=== PATIENT | female | born 1945 | race Caucasian/White ===

== ENCOUNTER 2024-11-17 11:27 | Day surgery (SDC) | payer MEDICARE, OTHER ==
[2024-11-17] VITALS (13 sets, daily range): BP systolic 106–143; BP diastolic 44–84; PULSE 76–92; RESP 12–16; TEMP 97.7; O2SAT 94–100
[~2024-11-17] VITALS: Ht 165.1 cm; Wt 75.3 kg
[~2024-11-17 11:27] MED LIST: FOLI1TAB27 PO; LOP12.5T PO; METH2.5T PO; MULT-1085 PO; VIT1CAPS46 PO; WARF3TAB56 PO
[2024-11-17 12:13] LABS: BASOPHILS # (AUTO) 0.1 X10'3 (0-0.2); BASOPHILS % (AUTO) 1.1 % (0-1); EOSINOPHILS # (AUTO) 0.1 X10'3 (0-0.9); EOSINOPHILS % (AUTO) 1.7 % (0-6); HEMATOCRIT 38.7 % (35.0-45.0); HEMOGLOBIN 13.1 g/dl (12.0-16.0); LYMPHOCYTES # (AUTO) 2.8 X10'3 (1.1-4.8); LYMPHOCYTES % (AUTO) 32.7 % (21-51); MEAN CORPUSCULAR HEMOGLOBIN 31.3 PG (27.0-31.0); MEAN CORPUSCULAR HGB CONC 33.8 g/dL (33.0-36.5); MEAN CORPUSCULAR VOLUME 92.8 FL (78-98); MEAN PLATELET VOLUME 9.2 FL (7.4-10.4); MONOCYTES # (AUTO) 0.6 X10'3 (0-0.9); MONOCYTES % (AUTO) 6.6 % (2-12); NEUTROPHILS # (AUTO) 4.9 X10'3 (1.8-7.7); NEUTROPHILS % (AUTO) 57.9 % (42-75); PLATELET COUNT 215 X10'3 (140-440); RED BLOOD COUNT 4.17 X10'6 (4.20-5.60); RED CELL DISTRIBUTION WIDTH 14.1 % (11.5-14.5); WHITE BLOOD COUNT 8.4 X10'3 (4.5-11.0)
[2024-11-17 12:14] LABS: ALBUMIN 3.6 G/DL (3.4-5.0); ANION GAP 8 (8-16); BLOOD UREA NITROGEN 20 MG/DL (7-18); BUN/CREATININE RATIO 28.6 (10.0-20.0); CALCIUM 9.6 MG/DL (8.5-10.1); CHLORIDE 107 MMOL/L (99-107); GLUCOSE 90 MG/DL (70-104); POTASSIUM 4.1 MMOL/L (3.5-5.1); SODIUM 141 MMOL/L (135-145); TOTAL CARBON DIOXIDE 25.7 MMOL/L (24-32); eCRCL 60 ML/MIN; eGFR 81 ML/MIN
[2024-11-17 12:17] LABS: APTT 35 SECONDS (22-32); PROTHROMBIN TIME 19.4 SECONDS (9.0-12.0)
[2024-11-17] MEDS: MIDAZolam 1mg/ml 10ml vial IV ONE (13:25)
[2024-11-17] MEDS: fentaNYL/PF 50MCG/1 ML 2ML syringe IV ONE (13:25)
[2024-11-17] MEDS: normal saline 1000ml 1,000 ML IV SCH (13:26)
[2024-11-17] MEDS ORDERED: ASPI81TA52 PO (15:12)
[2024-11-17] MEDS ORDERED: CLOP75TA34 PO (15:12)
--- NOTE | 2024-11-17 16:44 | CARDIOLOGY REPORT ---
APPROVED REPORT EXAM: Focused, limited transesophageal echocardiogram with color flow Doppler. Patient Location: CARDIAC SHORT STAY Blood Pressure: 101 / 59 mmHg Heart Rate: 75-90 bpm Rhythm: ATRIAL FIBRILLATION Indications POST WATCHMAN FLX SOFIA CLOSURE DEVICE IMPLANTATION FOLLOW UP EVALUATE DEVICE FOR THROMBUS, POSITION, AND SEAL ULICES PROBE PASSED BY: Mora BOOTH MD [employer] Service Professional: Cherelle Booth MD Previous echo: 10/01/24 [facility] SS EF" 60%; nlLV/RV; modLAE; mL TO R s/pTRANSSESPTAL; modTR; noPE LEFT VENTRICLE Normal LV size and wall thickness. Overall systolic function is normal. LVEF is 60%. RIGHT VENTRICLE RV is normal size and function. ATRIA Severe biatrial enlargement. intact interatrial septum without detectable shunt s/p transseptal punct ure. Left upper pulmonary vein identified. Successfully occluded left atrial appendage with well visu alized Watchman device well positioned without thrombus. No residual flow detected around device in a ll views. PERICARDIUM Normal pericardium. No effusion. CONCLUSION Normal LV size and wall thickness. Overall systolic function is normal. LVEF is 60%. RV is normal siz e and function. Severe biatrial enlargement. intact interatrial septum without detectable shunt s/p t ransseptal puncture. Left upper pulmonary vein identified. Successfully occluded left atrial appendag e with well visualized Watchman device well positioned without thrombus. No residual flow detected ar ound device in all views. Normal pericardium. No effusion. Conclusion Normal LV size and wall thickness. Overall systolic function is normal. LVEF is 60%. RV is normal size and function. Severe biatrial enlargement. intact interatrial septum without detectable shunt s/p transseptal punc ture. Left upper pulmonary vein identified. Successfully occluded left atrial appendage with well v isualized Watchman device well positioned without thrombus. No residual flow detected around device in all views. Normal pericardium. No effusion.
== END 2024-11-17 15:00 | disposition home or self-care (01) ==
LOC: SSTAY O 11:27
PROVIDERS: ATTEND Student in an Organized Health Care Education/Training Program
DX: I48.91 Unspecified atrial fibrillation (principal); M19.90 Unspecified osteoarthritis, unspecified site; Z98.890 Other specified postprocedural states; Z79.899 Other long term (current) drug therapy
CPT/HCPCS: 36415; 80048; 85025; 85610; 85730; 93312; 93325; 94760; J2250; J3010; J7030